=== PATIENT | male | born 1935 | race Caucasian/White ===

== ENCOUNTER 2017-03-25 12:16 | Emergency (ER) | payer MEDICARE ==
[~2017-03-25] VITALS: Ht 171.4 cm; Wt 81.0 kg
[~2017-03-25 12:16] MED LIST: ADLT ASA LOW81 MG PO; BICALUTAMIDE50 MG PO; D31000 UNIT PO; FENOFIBRATE MI134 MG PO; FENOFIBRATE50 MG; FISH OIL1200 M1 PO; FISH OIL1200 M2 PO; FLEXERIL5 M1 PO; GLUCOTROL XL2.5 MG PO; IBUPROFEN600 MG PO; LIPITOR10 MG PO; LISINOPRIL10 MG PO; LISINOPRIL5 MG; LOVASTATIN40 MG OR; MOBIC7.5 M1 PO; NITROQUICK0.4 MG SL; OMEPRAZOLE20 MG PO; SIMVASTATIN80 MG PO; TENORMIN25 MG OR; TIZANIDINE4 MG PO; WELCHOL625 MG PO
[2017-03-25 12:19] VITALS: BP 149/67
[2017-03-25] MEDS ORDERED: ZETIA10 MG PO (12:28)
[2017-03-25] MEDS ORDERED: LIPITOR80 M1 PO (12:29)
[2017-03-25] MEDS ORDERED: LORTAB 5/3255 MG PO (12:45)
[2017-03-25] MEDS ORDERED: PREDNISONE50 MG PO (12:45)
== END 2017-03-25 12:57 | disposition home or self-care (01) ==
LOC: ED 12:16
DX: M17.11 Unilateral primary osteoarthritis, right knee (principal); R22.41 Localized swelling, mass and lump, right lower limb; M79.604 Pain in right leg